=== PATIENT | female | born 1980 | race Caucasian/White ===

== ENCOUNTER 2017-03-30 23:28 | Emergency (ER) | payer BC, OTHER ==
[~2017-03-30] VITALS: Ht 167.6 cm; Wt 58.0 kg
[~2017-03-30 23:28] MED LIST: LEVOIUD
[2017-03-30 23:38] VITALS: TEMP 36.4; Ht 167.6 cm; Wt 58.0 kg
[2017-03-30] MEDS ORDERED: SODIUM CHLORIDE 0.9% 1000ML 1,000 ML IV STA (23:54)
--- NOTE | 2017-03-30 23:56 | EMERGENCY ROOM VISIT NOTE ---
History Report prepared by Edi: Pedro Oneil Under the Supervision of: Dr. Yanelis Damon D.O. 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 Earlier this evening, the patient and her were at their friend's wedding ceremony. She was drinking wine and champagne and said she drank too much. She is currently on Adderall, Spironolactone, Abilify, and an antidepressant that she cannot remember the name of. She has been on these for quite some time, but has never drank this much alcohol while taking them. She is currently nauseated and had some episodes of vomiting. She denies any abdominal pain, diarrhea, or recent injuries or falls. She has a past medical history of ADHD and Raynaud's disease. 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 A total of 10 systems reviewed and were otherwise negative. Past Medical & Surgical Medical Problems: (1) ADHD (2) Raynaud's disease Family History FHx: cancer Social History Smoking Status: Never Smoker Smokeless Tobacco Use: No Alcohol Use: occasionally Drug Use: none Marital Status: Housing Status: lives with family Occupation Status: employed Current/Historical Medications Scheduled Amphetamine-Dextroamphetamine 15MG (Adderall Xr 15MG), 15 MG PO DAILY Aripiprazole (Abilify), 1 TAB PO DAILY Escitalopram (Lexapro), 10 MG PO DAILY Spironolactone (Aldactone), 25 MG PO BID Miscellaneous Medications Levonorgestrel (Iud) (Mirena) Allergies Coded Allergies: No Known Allergies (Verified , 03/31/17) Physical Exam Vital Signs Date Time Temp Pulse Resp B/P (MAP) Pulse Ox O2 Delivery O2 Flow Rate FiO2 03/31/17 02:22 73 18 104/62 100 Room Air 03/31/17 01:25 80 18 86/51 97 Room Air 03/30/17 23:38 36.4 62 18 98/61 100 Room Air Physical Exam GENERAL: alert, well appearing, well nourished, no distress, non-toxic EYE EXAM: normal conjunctiva, PERRL and EOM's grossly intact OROPHARYNX: no exudate, no erythema, lips, buccal mucosa, and tongue normal and mucous membranes are moist NECK: supple, no nuchal rigidity, no adenopathy, non-tender LUNGS: Clear to auscultation. Normal chest wall mechanics HEART: no murmurs, S1 normal and S2 normal ABDOMEN: abdomen soft, non-tender, normo-active bowel sounds, no masses, no rebound or guarding. BACK: Back is symmetrical on inspection and there is no deformity, no midline tenderness, no CVA tenderness. SKIN: no rashes and no bruising UPPER EXTREMITIES: upper extremities are grossly normal. LOWER EXTREMITIES: No pitting edema. NEURO EXAM: Normal sensorium, cranial nerves II-XII [grossly] intact, normal speech, no [gross] weakness of arms, no [gross] weakness of legs. [No drift. Finger to nose intact. Gross sensation intact.] Medical Decision & Procedures Laboratory Results 03/31/17 00:27 Red Blood Count 4.10, Mean Corpuscular Volume 88.3, Mean Corpuscular Hemoglobin 30.0, Mean Corpuscular Hemoglobin Concent 34.0, Mean Platelet Volume 9.3, Neutrophils (%) (Auto) 67.7, Lymphocytes (%) (Auto) 25.3, Monocytes (%) (Auto) 4.9, Eosinophils (%) (Auto) 1.0, Basophils (%) (Auto) 0.8, Neutrophils # (Auto) 4.03, Lymphocytes # (Auto) 1.51, Monocytes # (Auto) 0.29, Eosinophils # (Auto) 0.06, Basophils # (Auto) 0.05 03/31/17 00:27 03/31/17 01:24 Test 03/31/17 00:27 03/31/17 01:24 White Blood Count 5.96 K/uL (4.8-10.8) Red Blood Count 4.10 M/uL (4.2-5.4) Hemoglobin 12.3 g/dL (12.0-16.0) Hematocrit 36.2 % (37-47) Mean Corpuscular Volume 88.3 fL (80-100) Mean Corpuscular Hemoglobin 30.0 pg (25-34) Mean Corpuscular Hemoglobin Concent 34.0 g/dl (32-36) Platelet Count 342 K/uL (130-400) Mean Platelet Volume 9.3 fL (7.4-10.4) Neutrophils (%) (Auto) 67.7 % Lymphocytes (%) (Auto) 25.3 % Monocytes (%) (Auto) 4.9 % Eosinophils (%) (Auto) 1.0 % Basophils (%) (Auto) 0.8 % Neutrophils # (Auto) 4.03 K/uL (1.4-6.5) Lymphocytes # (Auto) 1.51 K/uL (1.2-3.4) Monocytes # (Auto) 0.29 K/uL (0.11-0.59) Eosinophils # (Auto) 0.06 K/uL (0-0.5) Basophils # (Auto) 0.05 K/uL (0-0.2) RDW Standard Deviation 43.1 fL (36.4-46.3) RDW Coefficient of Variation 13.4 % (11.5-14.5) Immature Granulocyte % (Auto) 0.3 % Immature Granulocyte # (Auto) 0.02 K/uL (0.00-0.02) Anion Gap 9.0 mmol/L (3-11) Est Creatinine Clear Calc Drug Dose 79.0 ml/min Estimated GFR () 94.7 Estimated GFR (Non- 81.7 BUN/Creatinine Ratio 11.3 (10-20) Calcium Level 8.3 mg/dl (8.5-10.1) Total Bilirubin 1.1 mg/dl (0.2-1) Alanine Aminotransferase (ALT/SGPT) 21 U/L (12-78) Alkaline Phosphatase 31 U/L (45-117) Total Protein 7.9 gm/dl (6.4-8.2) Albumin 4.0 gm/dl (3.4-5.0) Globulin 3.9 gm/dl (2.5-4.0) Albumin/Globulin Ratio 1.0 (0.9-2) Human Chorionic Gonadotropin, Qual NEG (NEG) Chemistry Specimen Hemolysis Ethyl Alcohol mg/dL 159.0 mg/dl (0-3) Aspartate Amino Transf (AST/SGOT) 45 U/L (15-37) Laboratory results per my review. Medications Administered Medications (Trade) Dose Ordered Sig/Andreina Route Start Time Stop Time Status Last Admin Dose Admin Sodium Chloride 1,000 ml @ 999 mls/hr Q1H1M STAT IV 03/30/17 23:54 03/31/17 00:54 DC 03/31/17 01:27 999 MLS/HR ED Course 2342: The patient was evaluated in room B2. A complete history and physical exam was performed. 2354: Ordered Sodium Chloride 1000 ml @ 999 mls/hr IV 0120: The patient is asleep. 0140: The patient is no longer nauseated. She would like to go home. 0230: Upon reevaluation, the patient is feeling better. I discussed the findings and the treatment plan with the patient. She and her verbalize agreement and understanding. She was discharged home. Medical Decision Differential diagnosis: Etiologies such as alcohol intoxication, toxicologic, infection, hypoglycemia, electrolyte abnormalities, cardiac sources, intracerebral event, neurologic, as well as others were entertained. Patient well-appearing here, vital signs stable, no recurrent vomiting. Doubt acute or life-threatening interaction with patient's normal chronic medications. Patient stable here otherwise, discussed hydration, diet, symptoms watch return for, responsible consumption of alcohol, she and verbalized understanding were agreeable with plan. 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 Doubt other cardiac etiology, doubt bacteremia/sepsis, doubt additional GI pathology. Patient otherwise well-appearing with reassuring exam. Labs reassuring. Medication Reconcilliation Current Medication List: was personally reviewed by me Blood Pressure Screening Patient's blood pressure: Low blood pressure Decreased blood pressure felt to be situational Impression Primary Impression: Alcohol use with intoxication Additional Impression: Vomiting Scribe Attestation The scribe's documentation has been prepared under my direction and personally reviewed by me in its entirety. I confirm that the note above accurately reflects all work, treatment, procedures, and medical decision making performed by me. Departure Information Dispostion Home / Self-Care Referrals Jimbo Mistry Jr,D.O. (PCP) Forms HOME CARE DOCUMENTATION FORM, IMPORTANT VISIT INFORMATION Patient Instructions [facility] Additional Instructions Please drink responsibly. Please continue your regular medications as prescribed. Please drink clear liquids at frequent intervals to stay well hydrated. If you have any recurrent vomiting, develop fevers, abdominal pain, dizziness, feel you are going to pass out or you have any other new or concerning symptoms, please return to the emergency room. Problem Qualifiers Additional Impression: Vomiting Vomiting type: unspecified Vomiting Intractability: non-intractable Nausea presence: with nausea Qualified Codes: R11.2 - Nausea with vomiting, unspecified
[2017-03-31] MEDS ORDERED: ARIP2TAB3 PO (00:11)
[2017-03-31] MEDS ORDERED: AMPH15CA7 PO (00:11)
[2017-03-31] MEDS ORDERED: ESCI10TA17 PO (00:11)
[2017-03-31] MEDS ORDERED: SPIR25TA PO ×2 (00:12)
[2017-03-31 00:38] LABS: BASO % 0.8 %; BASO ABS # 0.05 K/uL (0-0.2); COMPLETE YES; HEMATOCRIT 36.2 % (37-47); IG% 0.3 %; LYMPH % 25.3 %; LYMPH ABS # 1.51 K/uL (1.2-3.4); MEAN CELL VOLUME 88.3 fL (80-100); MEAN PLATELET VOLUME 9.3 fL (7.4-10.4); MONO % 4.9 %; NEUT % 67.7 %; PLATELET COUNT 342 K/uL (130-400); WHITE BLOOD COUNT 5.96 K/uL (4.8-10.8)
[2017-03-31 00:59] LABS: PREG INTERNAL NEGATIVE QC NEG CLEAR BACKGROUND; PREG INTERNAL POSITIVE QC POS CONTROL LINE
[2017-03-31 01:14] LABS: ALKALINE PHOSPHATASE 31 U/L (45-117); ALT/SGPT 21 U/L (12-78); BLOOD UREA NITROGEN 10 mg/dl (7-18); BUN/CREATININE RATIO 11.3 (10-20); CALCIUM 8.3 mg/dl (8.5-10.1); CARBON DIOXIDE 27 mmol/L (21-32); CHLORIDE 105 mmol/L (98-107); CREATININE 0.91 mg/dl (0.60-1.20); GLUCOSE 96 mg/dl (70-99); SODIUM 141 mmol/L (136-145)
[2017-03-31 01:44] LABS: POTASSIUM 3.5 mmol/L (3.5-5.1)
[2017-03-31 02:22] VITALS: BP 104/62; PULSE 73; O2SAT 100
== END 2017-03-31 02:37 | disposition home or self-care (01) ==
LOC: C.EDB 23:30
DX: F10.129 Alcohol abuse with intoxication, unspecified (principal); Y90.6 Blood alcohol level of 120-199 mg/100 ml; R11.10 Vomiting, unspecified; F90.9 Attention-deficit hyperactivity disorder, unspecified type; Z79.899 Other long term (current) drug therapy; Z80.9 Family history of malignant neoplasm, unspecified